=== PATIENT | female | born 1980 | race Caucasian/White ===

== ENCOUNTER 2017-08-07 16:00 | Emergency (ER) | payer OTHER ==
[~2017-08-07] VITALS: Ht 152.4 cm; Wt 56.2 kg
[2017-08-07 16:05] VITALS: TEMP 36.8; Ht 152.4 cm; Wt 56.2 kg
[2017-08-07] MEDS ORDERED: MoRPHine SULFATE 4 MG/ML 1 ML CARP\\VIAL IV STA (16:44)
[2017-08-07] MEDS ORDERED: ONDANSETRON INJ 2 MG/ML 2 ML VIAL IV STA (16:44)
[2017-08-07] MEDS ORDERED: SODIUM CHLORIDE 0.9% 1000ML 1,000 ML IV STA (16:44)
[2017-08-07 17:00] LABS: URINE APPEARANCE TURBID (CLEAR); URINE BILIRUBIN NEG (NEG); URINE COLOR DK YELLOW; URINE EPITHELIAL CELL AUTO >30 /lpf (0-5); URINE NITRITE NEG (NEG); URINE SPECIFIC GRAVITY 1.024 (1.000-1.030); UROBILINOGEN NEG (NEG)
[2017-08-07 17:02] LABS: MANUAL MICROSCOPIC REQUIRED? NO; REVIEW REQ? YES
[2017-08-07 17:11] LABS: URINE PATH CASTS 0-3 GRANULAR CASTS /lpf (0)
[2017-08-07 17:16] LABS: BASO % 0.4 %; BASO ABS # 0.03 K/uL (0-0.2); COMPLETE YES; EOS % 6.2 %; HEMATOCRIT 33.4 % (37-47); IG% 0.1 %; LYMPH % 28.7 %; LYMPH ABS # 2.13 K/uL (1.2-3.4); MEAN CELL VOLUME 94.1 fL (80-100); MEAN CORPUSCULAR HEMOGLOBIN 33.2 pg (25-34); MEAN CORPUSCULAR HGB CONC 35.3 g/dl (32-36); MEAN PLATELET VOLUME 10.5 fL (7.4-10.4); MONO % 6.3 %; NEUT % 58.3 %; PLATELET COUNT 237 K/uL (130-400); RED BLOOD COUNT 3.55 M/uL (4.2-5.4); WHITE BLOOD COUNT 7.41 K/uL (4.8-10.8)
--- NOTE | 2017-08-07 17:24 | DIAGNOSTIC IMAGING REPORT ---
ABD/PELVIS WITHOUT FOR STONE CLINICAL HISTORY: 37 years-old Female presenting with left flank pain eval for stone/divertic. TECHNIQUE: Multidetector CT of the abdomen and pelvis was performed without the use of intravenous contrast. IV contrast: None. A dose lowering technique was used consistent with the principles of ALARA (as low as reasonably achievable). COMPARISON: None. CT DOSE (mGy.cm): The estimated cumulative dose is 536.33 mGy.cm. FINDINGS: Asset Accountant topogram: Unremarkable. Lung bases: Focal ovoid region in the right lung base which demonstrates a rim of groundglass opacity and central clearing. Normal heart size. No pericardial or pleural effusion. Liver: Normal morphology. Normal density. Biliary: No gross biliary ductal dilatation allowing for noncontrast technique. Normal gallbladder. Pancreas: Normal noncontrast appearance. Spleen: Normal noncontrast appearance. Adrenal glands: Normal noncontrast appearance. Kidneys and ureters: Normal noncontrast appearance. No hydronephrosis. Bladder: Incompletely evaluated secondary to underdistention. Allowing for this, no evidence of bladder calculi. Pelvic organs: Gas noted within the vagina, which may be thick walled. Prominent appearance of the cervix. Ovaries normal bilaterally. Bowel: Normal appendix. No bowel obstruction. Peritoneal cavity: Trace free fluid in the pelvis. Suggestion of slight peritoneal thickening in the pelvis. Vasculature: Normal noncontrast appearance. Lymph nodes: No gross lymphadenopathy allowing for noncontrast technique. Abdominal wall: Small fat-containing of the hernia. Musculoskeletal: Normal. IMPRESSION: 1. No evidence of nephrolithiasis or no hydronephrosis. 2. Prominent appearance of the vagina and cervix. The vagina may be thick walled. Normal ovaries. The uterus and cervix with better evaluated with ultrasound if clinically indicated. 3. Small amount of pelvic free fluid and trace peritoneal thickening, possibly physiologic. 4. Ovoid opacity at the right lung base could suggest organizing pneumonia if the patient has a recent history of pulmonary infection. Differential considerations include an adenomatous lesion. Chest CT to be considered as clinically warranted. Follow-up is recommended within 3 months. Electronically signed by: Davon Cardozo M.D. 08/07/2017 5:23 PM Dictated Date/Time: 08/07/2017 5:14 PM
[2017-08-07 17:27] LABS: ALT/SGPT 14 U/L (12-78); AST/SGOT 8 U/L (15-37); BLOOD UREA NITROGEN 8 mg/dl (7-18); BUN/CREATININE RATIO 11.3 (10-20); CALCIUM 9.8 mg/dl (8.5-10.1); CARBON DIOXIDE 27 mmol/L (21-32); CHLORIDE 110 mmol/L (98-107); CREATININE 0.67 mg/dl (0.60-1.20); GLUCOSE 86 mg/dl (70-99); POTASSIUM 3.7 mmol/L (3.5-5.1); SODIUM 141 mmol/L (136-145)
[2017-08-07 17:30] LABS: ALKALINE PHOSPHATASE 65 U/L (45-117)
[2017-08-07] MEDS ORDERED: CEFTRIAXONE SOD INJ 1 GM ADDVIAL IV STA (18:29)
[2017-08-07] MEDS ORDERED: DOXYCYCLINE HYCLATE 100 MG CAP PO STA (18:29)
--- NOTE | 2017-08-07 19:41 | DIAGNOSTIC IMAGING REPORT ---
CHEST 2 VIEWS ROUTINE CLINICAL HISTORY: 37 years-old Female presenting with eval for pna, congestion. TECHNIQUE: PA and lateral views of the chest were obtained. COMPARISON: None. FINDINGS: Cardiomediastinal silhouette normal. Lungs and pleural spaces clear. Osseous structures normal. Upper abdomen normal. IMPRESSION: 1. No acute cardiopulmonary disease. Electronically signed by: Davon Cardozo M.D. 08/07/2017 7:39 PM Dictated Date/Time: 08/07/2017 7:39 PM
--- NOTE | 2017-08-07 19:51 | DIAGNOSTIC IMAGING REPORT ---
PELVIC COMPLETE NON OB, TRANSVAG-FEMALE PELVIS CLINICAL HISTORY: 37 years-old Female presenting with eval for toa, cramps in the abdomen and lower back, left adnexal tenderness, history of tubal ligation, no abnormal bleeding. TECHNIQUE: Real-time grayscale and color and spectral Doppler ultrasound imaging of the pelvis was performed first using a transabdominal probe and subsequently transvaginal for better characterization. COMPARISON: CT from 08/07/2017. FINDINGS: Uterus: Normal. Anteverted. The uterus measures 9.7 x 3.7 x 4.7 cm. Endometrial stripe measures 3 mm in thickness. Endometrium normal-appearing. Cervix few nabothian cysts noted. No hyperemia of the endocervical region.. Right adnexa: Not visualized. However, on CT the right ovary is normal in size. Left adnexa: Left ovary normal. Left ovary measures 2.8 x 2.4 x 2.4 cm. The adjacent fallopian tube appears thickened and hyperemic on color Doppler, although it is not fluid-filled. Normal color Doppler flow and arterial and venous waveforms within the ovarian parenchyma. Other: Trace free fluid, likely physiologic. IMPRESSION: 1. Prominence and hyperemia of the left fallopian tube could suggest mild salpingitis in the appropriate clinical setting. No evidence of fluid within the fallopian tube. 2. No evidence of left ovarian torsion. 3. Nonvisualization of the right ovary however, the right ovary is normal in size on noncontrast CT. Electronically signed by: Davon Cardozo M.D. 08/07/2017 7:50 PM Dictated Date/Time: 08/07/2017 7:44 PM
[2017-08-07] MEDS ORDERED: KETOROLAC TROMETHAMINE 30 MG/ML VIAL IV STA (20:31)
[2017-08-07] MEDS ORDERED: OXYCODONE IR HOME PACK PO ONE (20:45)
[2017-08-07 20:50] VITALS: BP 112/56; PULSE 70; O2SAT 99
[2017-08-07] MEDS ORDERED: OXYC1TAB3 PO (20:58)
[2017-08-07] MEDS ORDERED: DOXY100C2 PO (20:58)
--- NOTE | 2017-08-07 23:35 | EMERGENCY ROOM VISIT NOTE ---
History Report prepared by Andre: Karin Snowden Under the Supervision of: Dr. Triston Valladares M.D. First contact with patient: 16:37 Chief Complaint: ABDOMINAL PAIN Stated Complaint: CRAMPS IN ABD/LOWER BACK Nursing Triage Summary: pt c/o lower mid abdominal pain that radiates into left lower back x2 days. pt c/o c/o nausea. denies vomiting/ diarrhea denies urinary sx History of Present Illness The patient is a 37 year old female who presents to the Emergency Room with complaints of constant lower abdominal pain starting 2 days ago. The pain is in her lower abdomen and wraps around to her left back. She describes the pain as cramping, similar to menstrual cramps, but more intense. Nothing worsens her pain. She has been nauseous and vomiting. She has vomited 4 times. She has had a runny nose, but no cough. She denies any fever or urinary symptoms. Her bowel movements have been normal. She is unsure of . She has had her tubes tied. She does smoke 0.5 ppd. She denies any abnormal vaginal bleeding or discharge. She is sexually active with one partner and has no history of STI. She does not use condoms. Source of History: patient Onset: 2 days ago Position: abdomen (lower) Symptom Intensity: severe Quality: cramping Timing: constant Associated Symptoms: + nausea, + vomiting, No fevers, No urinary symptoms Review of Systems See HPI for pertinent positives & negatives. A total of 10 systems reviewed and were otherwise negative. Past Medical & Surgical Surgical Problems: (1) S/P tubal ligation Family History No pertinent family history stated. Social History Smoking Status: Current Every Day Smoker Marital Status: Occupation Status: employed Current/Historical Medications Scheduled Doxycycline Hyclate (Vibramycin), 100 MG PO BID Scheduled PRN Oxycodone Ir (Roxicodone Ir), 5 MG PO Q4H PRN for Pain Allergies Coded Allergies: No Known Allergies (Unverified , 08/07/17) Physical Exam Vital Signs Date Time Temp Pulse Resp B/P (MAP) Pulse Ox O2 Delivery O2 Flow Rate FiO2 08/07/17 20:50 70 18 112/56 99 08/07/17 17:54 78 18 120/73 100 Room Air 08/07/17 16:05 36.8 74 20 123/81 98 Room Air Physical Exam Constitutional: Vital signs reviewed. Eyes: Pupils are equal round reactive to light. Conjunctiva are noninjected. ENT: Pharynx is clear without erythema or exudate. Mucous membranes are moist. Neck supple without meningeal signs. Respiratory: Clear to auscultation bilaterally. Breath sounds are equal bilaterally. Cardiovascular: Regular rate and rhythm. No rubs or gallops. GI: Soft, nondistended. Suprapubic and LLQ tenderness. No rebound. Bowel sounds are present. Pelvis: Yellowish discharge. No CMT. No external lesions. Left adnexal tenderness. Musculoskeletal: No peripheral edema. No CVA tenderness. Integumentary: No cyanosis. Neurological: The patient is awake and alert. No focal deficits. Psychiatric: Normal affect. Medical Decision & Procedures ER Provider Diagnostic Interpretation: Radiology results as stated below per my review and the radiologist's interpretation: ABD/PELVIS WITHOUT FOR STONE CLINICAL HISTORY: 37 years-old Female presenting with left flank pain eval for stone/divertic. TECHNIQUE: Multidetector CT of the abdomen and pelvis was performed without the use of intravenous contrast. IV contrast: None. A dose lowering technique was used consistent with the principles of ALARA (as low as reasonably achievable). COMPARISON: None. CT DOSE (mGy.cm): The estimated cumulative dose is 536.33 mGy.cm. FINDINGS: Automotive Lube Technician topogram: Unremarkable. Lung bases: Focal ovoid region in the right lung base which demonstrates a rim of groundglass opacity and central clearing. Normal heart size. No pericardial or pleural effusion. Liver: Normal morphology. Normal density. Biliary: No gross biliary ductal dilatation allowing for noncontrast technique. Normal gallbladder. Pancreas: Normal noncontrast appearance. Spleen: Normal noncontrast appearance. Adrenal glands: Normal noncontrast appearance. Kidneys and ureters: Normal noncontrast appearance. No hydronephrosis. Bladder: Incompletely evaluated secondary to underdistention. Allowing for this, no evidence of bladder calculi. Pelvic organs: Gas noted within the vagina, which may be thick walled. Prominent appearance of the cervix. Ovaries normal bilaterally. Bowel: Normal appendix. No bowel obstruction. Peritoneal cavity: Trace free fluid in the pelvis. Suggestion of slight peritoneal thickening in the pelvis. Vasculature: Normal noncontrast appearance. Lymph nodes: No gross lymphadenopathy allowing for noncontrast technique. Abdominal wall: Small fat-containing of the hernia. Musculoskeletal: Normal. IMPRESSION: 1. No evidence of nephrolithiasis or no hydronephrosis. 2. Prominent appearance of the vagina and cervix. The vagina may be thick walled. Normal ovaries. The uterus and cervix with better evaluated with ultrasound if clinically indicated. 3. Small amount of pelvic free fluid and trace peritoneal thickening, possibly physiologic. 4. Ovoid opacity at the right lung base could suggest organizing pneumonia if the patient has a recent history of pulmonary infection. Differential considerations include an adenomatous lesion. Chest CT to be considered as clinically warranted. Follow-up is recommended within 3 months. Electronically signed by: Davon Cardozo M.D. 08/07/2017 5:23 PM Dictated Date/Time: 08/07/2017 5:14 PM CHEST 2 VIEWS ROUTINE CLINICAL HISTORY: 37 years-old Female presenting with eval for pna, congestion. TECHNIQUE: PA and lateral views of the chest were obtained. COMPARISON: None. FINDINGS: Cardiomediastinal silhouette normal. Lungs and pleural spaces clear. Osseous structures normal. Upper abdomen normal. IMPRESSION: 1. No acute cardiopulmonary disease. Electronically signed by: Davon Cardozo M.D. 08/07/2017 7:39 PM Dictated Date/Time: 08/07/2017 7:39 PM PELVIC COMPLETE NON OB, TRANSVAG-FEMALE PELVIS CLINICAL HISTORY: 37 years-old Female presenting with eval for toa, cramps in the abdomen and lower back, left adnexal tenderness, history of tubal ligation, no abnormal bleeding. TECHNIQUE: Real-time grayscale and color and spectral Doppler ultrasound imaging of the pelvis was performed first using a transabdominal probe and subsequently transvaginal for better characterization. COMPARISON: CT from 08/07/2017. FINDINGS: Uterus: Normal. Anteverted. The uterus measures 9.7 x 3.7 x 4.7 cm. Endometrial stripe measures 3 mm in thickness. Endometrium normal-appearing. Cervix few nabothian cysts noted. No hyperemia of the endocervical region.. Right adnexa: Not visualized. However, on CT the right ovary is normal in size. Left adnexa: Left ovary normal. Left ovary measures 2.8 x 2.4 x 2.4 cm. The adjacent fallopian tube appears thickened and hyperemic on color Doppler, although it is not fluid-filled. Normal color Doppler flow and arterial and venous waveforms within the ovarian parenchyma. Other: Trace free fluid, likely physiologic. IMPRESSION: 1. Prominence and hyperemia of the left fallopian tube could suggest mild salpingitis in the appropriate clinical setting. No evidence of fluid within the fallopian tube. 2. No evidence of left ovarian torsion. 3. Nonvisualization of the right ovary however, the right ovary is normal in size on noncontrast CT. Electronically signed by: Davon Cardozo M.D. 08/07/2017 7:50 PM Dictated Date/Time: 08/07/2017 7:44 PM Laboratory Results 08/07/17 16:55 Red Blood Count 3.55, Mean Corpuscular Volume 94.1, Mean Corpuscular Hemoglobin 33.2, Mean Corpuscular Hemoglobin Concent 35.3, Mean Platelet Volume 10.5, Neutrophils (%) (Auto) 58.3, Lymphocytes (%) (Auto) 28.7, Monocytes (%) (Auto) 6.3, Eosinophils (%) (Auto) 6.2, Basophils (%) (Auto) 0.4, Neutrophils # (Auto) 4.31, Lymphocytes # (Auto) 2.13, Monocytes # (Auto) 0.47, Eosinophils # (Auto) 0.46, Basophils # (Auto) 0.03 08/07/17 16:55 Test 08/07/17 16:45 08/07/17 16:55 08/07/17 18:30 Urine Color DK YELLOW Urine Appearance TURBID (CLEAR) Urine pH 7.0 (4.5-7.5) Urine Specific [place] 1.024 (1.000-1.030) Urine Protein NEG (NEG) Urine Glucose (UA) NEG (NEG) Urine Ketones TRACE (NEG) Urine Occult Blood NEG (NEG) Urine Nitrite NEG (NEG) Urine Bilirubin NEG (NEG) Urine Urobilinogen NEG (NEG) Urine Leukocyte Esterase TRACE (NEG) Urine WBC (Auto) 5-10 /hpf (0-5) Urine RBC (Auto) 0-4 /hpf (0-4) Urine Hyaline Casts (Auto) 1-5 /lpf (0-5) Urine Epithelial Cells (Auto) >30 /lpf (0-5) Urine Bacteria (Auto) NEG (NEG) Urine Crystals CALCIUM OXALATE (NONE Urine Pathogenic Casts 0-3 GRANULAR CASTS /lpf (0) Urine Test NEG (NEG) White Blood Count 7.41 K/uL (4.8-10.8) Red Blood Count 3.55 M/uL (4.2-5.4) Hemoglobin 11.8 g/dL (12.0-16.0) Hematocrit 33.4 % (37-47) Mean Corpuscular Volume 94.1 fL (80-100) Mean Corpuscular Hemoglobin 33.2 pg (25-34) Mean Corpuscular Hemoglobin Concent 35.3 g/dl (32-36) Platelet Count 237 K/uL (130-400) Mean Platelet Volume 10.5 fL (7.4-10.4) Neutrophils (%) (Auto) 58.3 % Lymphocytes (%) (Auto) 28.7 % Monocytes (%) (Auto) 6.3 % Eosinophils (%) (Auto) 6.2 % Basophils (%) (Auto) 0.4 % Neutrophils # (Auto) 4.31 K/uL (1.4-6.5) Lymphocytes # (Auto) 2.13 K/uL (1.2-3.4) Monocytes # (Auto) 0.47 K/uL (0.11-0.59) Eosinophils # (Auto) 0.46 K/uL (0-0.5) Basophils # (Auto) 0.03 K/uL (0-0.2) RDW Standard Deviation 45.2 fL (36.4-46.3) RDW Coefficient of Variation 13.0 % (11.5-14.5) Immature Granulocyte % (Auto) 0.1 % Immature Granulocyte # (Auto) 0.01 K/uL (0.00-0.02) Anion Gap 4.0 mmol/L (3-11) Est Creatinine Clear Calc Drug Dose 88.6 ml/min Estimated GFR () 128.3 Estimated GFR (Non- 110.7 BUN/Creatinine Ratio 11.3 (10-20) Calcium Level 9.8 mg/dl (8.5-10.1) Total Bilirubin 0.2 mg/dl (0.2-1) Direct Bilirubin < 0.1 mg/dl (0-0.2) Aspartate Amino Transf (AST/SGOT) 8 U/L (15-37) Alanine Aminotransferase (ALT/SGPT) 14 U/L (12-78) Alkaline Phosphatase 65 U/L (45-117) Total Protein 7.1 gm/dl (6.4-8.2) Albumin 3.6 gm/dl (3.4-5.0) Lipase 125 U/L (73-393) Laboratory results as reviewed by me. Medications Administered Medications (Trade) Dose Ordered Sig/Anthony Route Start Time Stop Time Status Last Admin Dose Admin Morphine Sulfate (MoRPHine SULFATE INJ) 4 mg ONE STAT IV 08/07/17 16:44 08/07/17 16:47 DC 08/07/17 16:56 4 MG Ondansetron HCl (Zofran Inj) 4 mg NOW STAT IV 08/07/17 16:44 08/07/17 16:47 DC 08/07/17 16:55 4 MG Sodium Chloride 1,000 ml @ 999 mls/hr Q1H1M STAT IV 08/07/17 16:44 08/07/17 17:44 DC 08/07/17 16:44 999 MLS/HR Ceftriaxone Sodium (Rocephin Inj) 1 gm NOW STAT IV 08/07/17 18:29 08/07/17 18:32 DC 08/07/17 20:25 1 GM Doxycycline Hyclate (Vibramycin Cap) 100 mg NOW STAT PO 08/07/17 18:29 08/07/17 18:32 DC 08/07/17 20:24 100 MG Ketorolac Tromethamine (Toradol Inj) 10 mg NOW STAT IV 08/07/17 20:31 08/07/17 20:32 DC 08/07/17 20:49 10 MG Oxycodone HCl (Roxicodone Immediate Rel 5MG Home Pack) 1 homepack UD ONCE PO 08/07/17 20:45 08/07/17 20:46 DC 08/07/17 21:06 1 HOMEPACK ED Course 1640: The patient was evaluated in room A12B. A complete history and physical exam was performed. 1644: NSS 1000 ml @ 999 mls/hr IV, Zofran Inj 4 mg IV, Morphine Sulfate 4 mg IV. 1743: I reevaluated the patient. I told her about the CT findings including the lung findings. 1825: I performed a pelvic exam in the presence of a female nurse maintenance repairman. Findings listed in the PE. 1829: Doxycycline Hyclate 100 mg PO, Rocephin Inj 1 gm IV. 1999: I discussed the patient's case with Dr. Beasley, [facility]. She agrees with antibiotics. She will follow up sometime next week. 2019: I reevaluated the patient. I discussed the test results with her. She verbalized agreement of the treatment plan. She was discharged home. 2030: Toradol Inj 10 mg IV. 2044: Oxycodone HCl 1 homepack PO. Medical Decision This is a 37-year-old female who presents with lower abdominal pain. Differential diagnosis includes ectopic , ovarian cyst, PID, TOA, diverticulitis, kidney stone, UTI. I did perform a limited focused review of portions of the patient's old chart on the electronic medical record. The patient has had no prior visits to this hospital. I did evaluate the patient as noted above. IV access was established. The patient was treated with normal saline IV. She was also given IV morphine and Zofran. I did order and personally review the patient's urinalysis as described above. She does have calcium oxalate crystals. Urine is negative. I did order and review the patient's blood work as noted in the electronic medical record. Her white blood cell count is not elevated. She is anemic. I did order a CT of the abdomen and pelvis. I did review the images myself as well as the radiology report as described above. There is no evidence of diverticulitis or kidney stone. There was some pelvic fluid as well as some thickening to her vagina and cervix. I did perform a pelvic examination on patient. She does have some yellowish discharge. GC and chlamydia swabs were sent. Genital culture was obtained. Trichomonas testing was negative. I did order a pelvic ultrasound which demonstrated possible mild salpingitis. I did discuss the test results with the patient. I did treat her with Rocephin 1 g IV. She was also given doxycycline. I did discuss the case with Dr. Beasley of gynecology. She stated that she would follow up with the patient next week. I also discussed her lung findings with her on CT scanning. She is a heavy smoker and so I did recommend she follow up with a primary care physician and have a outpatient CT scan of the chest for further evaluation for possible lung CA. Chest x-ray done here was unremarkable. The patient was discharged with a prescription for doxycycline for 14 days and oxycodone for pain. She was given return instructions as outlined below. [place] Drug Monitoring Program Search Results: patient reviewed within database Drug Monitoring Findings: No matching patients. Medication Reconcilliation Current Medication List: was personally reviewed by me Blood Pressure Screening Patient's blood pressure: Elevated blood pressure Blood pressure disposition: Elevated BP felt to be situational Consults Time Called: 1958 Consulting Physician: Dr. Beasley, [facility] Returned Call: 1999 I discussed the patient's case with her. She agrees with antibiotics. She will follow up sometime next week. Impression Primary Impression: PID (acute pelvic inflammatory disease) Additional Impressions: Salpingitis Right lower lobe lung mass Scribe Attestation The scribe's documentation has been prepared under my direct and personally reviewed by me in its entirety. I confirm that the note above accurately reflects all work, treatment, procedures, and medical decision making performed by me. Departure Information Dispostion Home / Self-Care Prescriptions Oxycodone Ir (Roxicodone Ir) 5 Mg Tab 5 MG PO Q4H Y for Pain, #10 TAB Prov: Triston Valladares M.D. 08/07/17 Doxycycline Hyclate (VIBRAMYCIN) 100 Mg Cap 100 MG PO BID for 14 Days, #28 CAP Prov: Triston Valladares M.D. 08/07/17 Referrals No Doctor, Assigned (PCP) Shaista Navarrete M.D. Forms Call Back Authorization, HOME CARE DOCUMENTATION FORM, IMPORTANT VISIT INFORMATION Patient Instructions My [facility], PID Additional Instructions You have been examined and treated today on an emergency basis only. This is not a substitute for, or an effort to provide, complete comprehensive medical care. It is impossible to recognize and treat all injuries or illnesses in a single emergency department visit. It is therefore important that you follow up closely with Dr. Shaista Beasley of obstetrics and gynecology as well as a regular physician to scheduled an outpatient CT of your chest. Call as soon as possible for an appointment. Return for worsening symptoms or if you develop fever, vomiting, or any other concerning symptoms. Problem Qualifiers
--- NOTE | 2017-08-10 15:37 | Pharmacy Progress Note ---
ED Pharmacist Culture FollowUp Date of Service: Aug 10, 2017. Called patient regarding genital culture. Result positive for gardnerella and gonorrhea. Patient received a 1g Rocephin iv in the ED and was discharged on doxycyline 100mg BID X 10 days which should cover the gonorrhea. A Prescription for metronidazole 500mg BID X 7 days called to [facility] at the patient's request. Also discussed the importance of follow up with machine operator transplanter and disclosure to any sexual partners. I also informed patient if symptoms do not improve or get worse she should return to the ED or contact her machine operator transplanter. Case discussed with Dr. Jackson, who is the prescribing provider.
[2017-08-11 01:36] LABS: CHLAMYDIA TRACH RNA*** NOT DETECTED (NOT DETECTED); GC (NEIS GONORRHOEAE)RNA** DETECTED (NOT DETECTED)
== END 2017-08-07 21:10 | disposition home or self-care (01) ==
LOC: C.EDB 16:02 → C.EDA 21:10
DX: N73.0 Acute parametritis and pelvic cellulitis (principal); N70.91 Salpingitis, unspecified; R91.8 Other nonspecific abnormal finding of lung field; F17.200 Nicotine dependence, unspecified, uncomplicated

== ENCOUNTER 2018-01-18 19:31 | Emergency (ER) | payer OTHER ==
[~2018-01-18] VITALS: Ht 152.4 cm; Wt 53.2 kg
[~2018-01-18 19:31] MED LIST: DOXY100C2 PO; OXYC1TAB3 PO
[2018-01-18 19:34] VITALS: TEMP 36.8; Ht 152.4 cm; Wt 53.2 kg
[2018-01-18] MEDS ORDERED: IBUPROFEN 600 MG TAB PO STA (19:53)
[2018-01-18] MEDS ORDERED: HYDROCODONE/ACETAMIN 5/325MG TAB PO STA (20:34)
[2018-01-18] MEDS ORDERED: HYDR-5688 PO (20:42)
[2018-01-18] MEDS ORDERED: NORCO 5/325MG HOME PACK PO ONE (20:45)
--- NOTE | 2018-01-18 20:45 | EMERGENCY ROOM VISIT NOTE ---
History First contact with patient: 19:41 Chief Complaint: BURN (MINOR) Stated Complaint: CHEMICAL CASTELLANOS ON LEFT ARM History of Present Illness The patient is a 37 year old female who presents to the Emergency Room with complaints of castellanos to her left arm and right hand that she sustained when she was exposed to a chemical at work. The patient was cleaning an oven with "easy off oven spot cleaner." She immediately felt a burning sensation. This happened approximately 1 hour ago. She did not get any exposure to her face or eyes. Her tetanus shot is up-to-date. Review of Systems 6 system review negative. Please see pertinent positives in the history of present illness section. Past Medical/Surgical History Surgical Problems: (1) S/P tubal ligation Social History Smoking Status: Current Every Day Smoker Marital Status: Occupation Status: employed Current/Historical Medications Scheduled Doxycycline Hyclate (Vibramycin), 100 MG PO BID Scheduled PRN Hydrocodone/Acetaminophen 5MG/325MG ([place] 5MG/325MG), 1-2 TABLET PO Q4H PRN for Pain Oxycodone Ir (Roxicodone Ir), 5 MG PO Q4H PRN for Pain Physical Exam Vital Signs Date Time Temp Pulse Resp B/P (MAP) Pulse Ox O2 Delivery O2 Flow Rate FiO2 01/18/18 21:11 78 20 127/70 98 01/18/18 19:36 95 Room Air 01/18/18 19:34 36.8 72 18 124/81 95 Room Air Physical Exam VITALS: Vitals are noted on the nurse's note and reviewed by myself. Vital signs stable. GENERAL: 37-year-old female, appears older than stated age, mildly uncomfortable in appearance SKIN: 3, blotchy, erythematous, slightly raised, waxy feeling lesions noted to the left forearm. Punctate lesions also noted on the right third and fourth finger. None are circumferential. HEAD: Normocephalic atraumatic. MUSCULOSKELETAL: Strength 5/5 throughout. NEURO: Patient was alert and oriented to person place and time. Normal sensation to touch. No focal neurological deficits. Medical Decision & Procedures Medications Administered Medications (Trade) Dose Ordered Sig/Anthony Route Start Time Stop Time Status Last Admin Dose Admin Ibuprofen (Motrin Tab) 600 mg ONE STAT PO 01/18/18 19:53 01/18/18 19:54 DC 3/19/18 20:32 600 MG Acetaminophen/ Hydrocodone Bitart ([place] 5/325mg Home Pack) 1 homepack UD ONCE PO 01/18/18 20:45 01/18/18 20:46 DC 01/18/18 21:07 1 HOMEPACK Acetaminophen/ Hydrocodone Bitart ([place] 5/325 Tab) 1 tab ONE STAT PO 01/18/18 20:34 01/18/18 20:36 DC 01/18/18 21:07 1 TAB ED Course The patient was seen and examined [facility] was contacted. We discussed the substance. The patient was given Motrin 600 mg and a [place] by mouth The patient's arms were immediately soaked in sterile water. They were dressed with Neosporin and a loose bandage. The patient tolerated the procedure well. She was given a home pack of [place] Discharge instructions were reviewed, and she was discharged in good condition Medical Decision Differential diagnosis: Chemical burn, first, second, third degree This patient is a 37-year-old female that presents to the emergency department with a chemical burn particularly to her left forearm. The castellanos were fairly minor. The substance is a basic solution of sodium hydroxide. The poison center was contacted. They suggested rinsing the area with soap and water and treat it like a thermal burn. This was performed. The patient was cautioned on signs of infection. She was sent home with a short course of narcotics. She will follow-up with her primary care physician for a recheck and return with worsening symptoms This chart was completed in part utilizing [employer] Speech Voice Recognition software. Attempts were made to minimize the grammatical errors, random word insertions, pronoun errors and incomplete sentences. Any formal questions or concerns about the content, text or information contained within the body of this dictation should be directly addressed to the provider for clarification. Impression Primary Impression: Chemical burn Departure Information Dispostion Home / Self-Care Condition GOOD Prescriptions Hydrocodone/Acetaminophen 5MG/325MG ([place] 5MG/325MG) Tab 1-2 TABLET PO Q4H Y for Pain, #15 TAB For Initial Treatment Prov: Regla Gonzalez PA-C 01/18/18 Referrals No Doctor, Assigned (PCP) Forms HOME CARE DOCUMENTATION FORM, IMPORTANT VISIT INFORMATION Patient Instructions ED Burn Chemical, My [facility] Additional Instructions You have been evaluated in the emergency department for a chemical burn. It is very important for you to keep this area clean. Please wash the area twice daily with soap and water. Then apply Neosporin or an antibacterial ointment. Cover the area for the first 3 days. Ibuprofen 600 mg every 6 hours [place] 1-2 tabs every 4 hours for severe pain. Do not drink alcohol or drive while taking this medication. This may be taken with ibuprofen, but avoid Tylenol. This medication may cause constipation Please follow-up with your primary care physician in the next 2-3 days for recheck Please do not hesitate to return to the emergency department with any new, worsening or concerning symptoms; especially, worsening redness, swelling, red streaking or fever Work Instructions Return To Work: 1 day
[2018-01-18 21:11] VITALS: BP 127/70; PULSE 78; O2SAT 98
== END 2018-01-18 21:14 | disposition home or self-care (01) ==
LOC: C.EDB 19:32 → C.EDD 21:14
DX: T22.012A Burn of unspecified degree of left forearm, initial encounter (principal); T23.031A Burn of unspecified degree of multiple right fingers (nail), not including thumb, initial encounter; T54.91XA Toxic effect of unspecified corrosive substance, accidental (unintentional), initial encounter; Y99.0 Civilian activity done for income or pay; Z98.51 Tubal ligation status; F17.210 Nicotine dependence, cigarettes, uncomplicated